=== PATIENT | female | born 1995 | race Caucasian/White ===

== ENCOUNTER 2022-10-27 12:18 | Emergency (ER) | payer BC, SELFPAY ==
[2022-10-27 12:42] LABS: Bilirubin Negative (Negative); Blood, Urine Trace (Negative); Clarity Clear (Clear); Glucose, Urine (Dipstick) Negative (Negative); Ketone, Urine Negative (Negative); Leukocyte Small (Negative); Nitrite Positive (Negative); Protein, Urine (Dipstick) Negative (Neg-Trace); Urobilinogen 0.2 mg/dL (Less than 2); pH, Urine 6.5 (5.0-9.0)
[2022-10-27 12:50] LABS: Bacteria/HPF 2+ HPF (None Seen); RBC/HPF 0-3 HPF (0-3); Squamous Epithelial 0-3 HPF (0-3); WBC/HPF 0-3 HPF (0-3)
[2022-10-27 12:51] LABS: Pregnancy Test - Urine (BHCG) Negative (Negative); Pregu Control Background? CLEAR/WHITE (CLR/WHITE); Pregu Control Bar Appear? YES (CONTROL BAR)
[2022-10-27] MEDS ORDERED: Cipro 250 MG TAB ONE (13:23)
== END 2022-10-27 13:29 | disposition home or self-care (01) ==
LOC: NAV ERS 12:18
DX: N39.0 Urinary tract infection, site not specified (principal)
CPT/HCPCS: 81003; 81015; 81025; 87077; 87086; 87186; 99283

== ENCOUNTER 2025-06-04 10:46 | Emergency (ER) | payer BC ==
[2025-06-04] MEDS ORDERED: Azithromycin 250 MG TAB ONE (12:09)
[2025-06-04] MEDS ORDERED: Lidocaine Viscous Sol 2% 15 ml UD Cup ONE (12:10)
[2025-06-04] MEDS ORDERED: predniSONE 20 MG TAB ONE (12:10)
== END 2025-06-04 12:29 | disposition home or self-care (01) ==
LOC: NAV ERS 10:46
DX: J20.9 Acute bronchitis, unspecified (principal); J02.9 Acute pharyngitis, unspecified
CPT/HCPCS: 87081; 87428; 87430; 99283; J7512